=== PATIENT | female | born 1985 ===

== ENCOUNTER 2022-11-12 05:52 | Day surgery (SDC) | payer OTHER ==
[~2022-11-12] VITALS: Ht 170.2 cm; Wt 69.9 kg
[~2022-11-12 05:52] MED LIST: SYNTHROID50 MCG PO
== END 2022-11-12 17:45 | disposition home or self-care (01) ==
LOC: CIR.AMB 05:52
PROVIDERS: ATTEND Surgery
DX: K81.1 Chronic cholecystitis (principal); Z88.8 Allergy status to other drugs, medicaments and biological substances; Z20.822 Contact with and (suspected) exposure to COVID-19